=== PATIENT | female | born 1990 | race Two or more races ===

== ENCOUNTER 2018-08-11 18:23 | Emergency (ER) | payer MEDICAID, OTHER ==
[~2018-08-11] VITALS: Ht 152.4 cm; Wt 136.1 kg
[2018-08-11] MEDS ORDERED: KETOROLAC TROMETH 30 MG/ML 1ML VIAL IV ONE (19:45)
[2018-08-11] MEDS ORDERED: ONDANSETRON HCL 4 MG/2 ML VIAL IV ONE (19:45)
[2018-08-11] MEDS ORDERED: SODIUM CHLORIDE 0.9% 1,000 ML IV ONE (19:45)
[2018-08-11] MEDS ORDERED: HYDROmorphone HCL 2 MG/ML VL IV ONE (19:45)
[2018-08-11] MEDS ORDERED: KETOROLAC TROMETH 60MG/2ML VIAL IM ONE (20:37)
[2018-08-11 23:10] VITALS: BP 130/52
== END 2018-08-11 23:27 | disposition home or self-care (01) ==
LOC: ER 18:23 → EDBD 18:23 → ER 23:27
DX: S13.9XXA Sprain of joints and ligaments of unspecified parts of neck, initial encounter (principal); V49.49XA Driver injured in collision with other motor vehicles in traffic accident, initial encounter; Y93.89 Activity, other specified; Y99.8 Other external cause status; Y92.488 Other paved roadways as the place of occurrence of the external cause
CPT/HCPCS: 70450; 72125; 73030; 73562; 94761; 96374; 96375; 99285; J1170; J1885; J2405; J7030